=== PATIENT | male | born 1940 | race Caucasian/White ===

== ENCOUNTER 2019-06-10 11:16 | Emergency (ER) | payer MEDICARE, OTHER ==
--- NOTE | 2019-06-10 12:29 | EDM.PDOC ---
ED HPI GENERAL MEDICAL PROBLEM - General Chief Complaint: Headache Stated Complaint: HEADACHE/SENT FROM [facility] Time Seen by Provider: 06/10/19 11:41 Source of Information: Reports: Patient, RN Notes Reviewed History Limitations: Reports: No Limitations - History of Present Illness INITIAL COMMENTS - FREE TEXT/NARRATIVE: Patient is a 78-year-old male who presents to the ED for the evaluation of a right-sided headache. Patient notes that he woke up at around 4 AM today, and had a headache behind his right eye, that extended into the his right occipital region. He would rate this at about a 5 out of 10 at that time, he took 2 aspirin at that time, and then another 2 aspirin at around 9 AM. He states that the headache has subsequently went away. He notes that he has no blurred vision or double vision, no increased confusion from his normal, and his also notes that he is acting normal per himself. The patient did call his clinic doctor, and they cautioned him to come to the ER for possible CT scan, as the patient does have prostate cancer, and they were worried about further abnormalities. He most recently had a bone scan in April 2019, which demonstrated possible degenerative change in multiple joints there were no metastatic looking lesion areas. Patient has no gait disturbance, no unilateral weakness or focal neurological abnormalities identified on initial exam. States that his headache is almost completely gone, and rated his pain at a 2 out of 10 today. Right Head Pain Score (Numeric/FACES): 2 - Related Data Allergies Allergy/AdvReac Type Severity Reaction Status Date / Time No Known Allergies Allergy Verified 10/20/13 07:47 Home Meds: Home Meds Abiraterone Acetate [Zytiga] 250 mg PO 06/10/19 [History] Alfuzosin HCl [Alfuzosin HCl ER] 10 mg PO 06/10/19 [History] Latanoprost 1 drop EYEBOTH 06/10/19 [History] predniSONE [Prednisone] 5 mg PO 06/10/19 [History] Past Medical History HEENT History: Reports: Impaired Vision Genitourinary History: Reports: Other (See Below) (Prostate cancer, Sees Dr. Simeon ) Musculoskeletal History: Reports: Arthritis Neurological History: Reports: Other (See Below) (self stated mental confusion) Oncologic (Cancer) History: Reports: Prostate Dermatologic History: Reports: Benign Melanoma, Eczema Social & Family History - Tobacco Use Smoking Status *Q: Former Smoker Used Tobacco, but Quit: No - Caffeine Use Caffeine Use: Reports: Coffee - Alcohol Use Days Per Week of Alcohol Use: 7 Number of Drinks Per Day: 2 Total Drinks Per Week: 14 Date of Last Drink: 06/09/19 Time of Last Drink: 15:00 - Recreational Drug Use Recreational Drug Use: No ED ROS GENERAL - Review of Systems Review Of Systems: See Below Constitutional: Denies: Fever, Chills HEENT: Denies: Eye Pain, Rhinitis, Throat Pain, Vertigo, Vision Change Cardiovascular: Denies: Chest Pain GI/Abdominal: Denies: Abdominal Pain, Constipation, Diarrhea, Nausea, Vomiting Musculoskeletal: Denies: Neck Pain Neurological: Reports: Confusion (not increased from baseline), Headache. Denies: Pre-Existing Deficit, Syncope, Trouble Speaking, Difficulty Walking, Weakness, Change in Speech, Gait Disturbance - Physical Exam Exam: See Below Exam Limited By: No Limitations General Appearance: Alert, WD/WN, No Apparent Distress Eye Exam: Bilateral Eye: EOMI, Normal Inspection, PERRL Throat/Mouth: Normal Inspection, Normal Lips, Normal Teeth, Normal Gums, Normal Oropharynx, Normal Voice, No Airway Compromise Head Exam: Atraumatic, Normocephalic Neck: Normal Inspection, Supple, Non-Tender, Full Range of Motion Respiratory/Chest: No Respiratory Distress, Lungs Clear, Normal Breath Sounds, No Accessory Muscle Use, Chest Non-Tender Cardiovascular: Normal Peripheral Pulses, Regular Rate, Rhythm, No Murmur GI/Abdominal: Normal Bowel Sounds, Soft, Non-Tender, No Distention, No Mass Neuro Exam (Abbreviated): Alert, Oriented, Normal Cognition, Normal Gait, Normal Reflexes, No Motor/Sensory Deficits Back Exam: Normal Inspection Extremities: Normal Inspection, Normal Range of Motion, Normal Capillary Refill Psychiatric: Normal Affect, Normal Mood Skin Exam: Warm, Dry, Intact, Normal Color, No Rash Course - Vital Signs Last Recorded V/S: Last Vital Signs Temp 96.5 F 06/10/19 11:25 Pulse 69 06/10/19 11:25 Resp 18 06/10/19 11:25 BP 129/72 06/10/19 11:25 Pulse Ox 98 06/10/19 11:25 - Re-Assessments/Exams Free Text/Narrative Re-Assessment/Exam: 06/10/19 12:39 Presents to the ED for the evaluation of a headache. I do not believe the patient requires any sort of head CT or head imaging at this time, and he states that his headache is most gone away since he has been sitting here as well. reassures me that his confusion or change in mentation is not off from baseline. She did not note any sort of unilateral weakness or other neurological deficiencies as well. At this time patient's headache has resolved , and he is not asking for any sort of medications, he was worried more about the possibility of a head CT. No medications will be administered at this time , and there will be no head CT done at today's visit, however I did educate them on signs and symptoms of what to watch out for, and they are understanding of this. Departure - Departure Time of Disposition: 12:27 Disposition: Home, Self-Care 01 Condition: Fair Clinical Impression: Headache Qualifiers: Headache type: unspecified Headache chronicity pattern: acute headache Intractability: not intractable Qualified Code(s): R51 - Headache - Discharge Information *PRESCRIPTION DRUG MONITORING PROGRAM REVIEWED*: No *COPY OF PRESCRIPTION DRUG MONITORING REPORT IN PATIENT STERLING: No Instructions: General Headache Without Cause, [id number] Referrals: Sesar Byrd Jr, MD [Primary Care Provider] - Forms: ED Department Discharge Additional Instructions: You were evaluated in the ED for your headache. You were evaluated, and there was no imaging or medications given for your headache today, as your headache had almost completely resolved itself by the time of evaluation. General recommendations to help prevent headaches, with to try to keep yourself well-hydrated, you may try 400 to 600 mg ibuprofen at onset of headache, along with 25 mg of Benadryl as well at home if you should wish to do so. If you should develop any sign of unilateral weakness, unilateral facial droop, or if you begin to be more confused than you normally are, this would be cause for concern for immediate management in the ER. Please return to the ED if your symptoms should change or worsen. Sepsis Event Note - Evaluation Sepsis Screening Result: No Definite Risk - Focused Exam Vital Signs: Vital Signs Temp Pulse Resp BP Pulse Ox 06/10/19 11:25 96.5 F 69 18 129/72 98 Date Exam was Performed: 06/10/19 Time Exam was Performed: 12:30
== END 2019-06-10 12:40 | disposition home or self-care (01) ==
LOC: JD.ED 11:16
DX: R51 Headache (principal); M19.90 Unspecified osteoarthritis, unspecified site; Z87.891 Personal history of nicotine dependence; Z79.899 Other long term (current) drug therapy
CPT/HCPCS: 99282; 99283

== ENCOUNTER 2021-12-23 07:47 | Day surgery (SDC) | payer MEDICARE, OTHER ==
[~2021-12-23 07:47] MED LIST: Lactated Ringers 1,000 ML IV SCH; Lidocaine 1%/Sod Bicarbonate in NS 8.4% 1 ML Syringe IDERM PRN; Morphine 8 MG, EPINEPHrine 0.3 MG, Cefuroxime 750 MG, Ketorolac 30 MG, Sodium Chloride ... PRN; Sodium Chloride 0.9% 10 ML Syringe FLUSH PRN; Sodium Chloride 0.9% 10 ML Syringe FLUSH SCH
[2021-12-23] MEDS ORDERED: Propofol 200 MG/20 ML SDV ONE ×2 (09:02→10:08)
[2021-12-23] MEDS ORDERED: Lidocaine 1% 4 ML ONE (09:02)
[2021-12-23] MEDS ORDERED: Vancomycin 1 GM SDV ONE (09:20)
[2021-12-23] MEDS ORDERED: Triamcinolone Acetonide 40 MG/ML 1 ML SDV ONE ×2 (09:20→09:21)
[2021-12-23] MEDS ORDERED: Bupivacaine 0.25% 10 ML SDV ONE (09:20)
[2021-12-23] MEDS ORDERED: ceFAZolin 2 GM Vial ONE (09:36)
[2021-12-23] MEDS ORDERED: Lactated Ringers 1,000 ML ONE (09:56)
[2021-12-23] MEDS ORDERED: Ondansetron 4 MG/2 ML SDV IVPUSH PRN (10:00)
[2021-12-23] MEDS ORDERED: fentaNYL 100 MCG/2 ML SDV IVPUSH PRN (10:00)
[2021-12-23] MEDS ORDERED: diphenhydrAMINE 50 MG/ML SDV IVPUSH PRN (10:00)
[2021-12-23] MEDS ORDERED: Ondansetron 4 MG/2 ML SDV ONE (10:46)
[2021-12-23] MEDS ORDERED: Ropivacaine 0.5% 5 MG/ML 30 ML SDV ONE (11:15)
[2021-12-23] MEDS ORDERED: EPINEPHrine 1 MG/ML SDV ONE (11:16)
[2021-12-23] MEDS: Acetaminophen/HYDROcodone 325-5 MG Tab PO PRN ×2 (12:20→12:51)
== END 2021-12-23 16:15 | disposition home or self-care (01) ==
LOC: JD.SDS 07:47
PROVIDERS: ATTEND Orthopaedic Surgery
DX: M17.0 Bilateral primary osteoarthritis of knee (principal); L57.0 Actinic keratosis; Z79.899 Other long term (current) drug therapy; Z88.8 Allergy status to other drugs, medicaments and biological substances; Z98.890 Other specified postprocedural states
CPT/HCPCS: 0055T; 20610; 27447; 73560; 97110; 97116; 97161; A9270; C1713; C1776; J0171; J0690; J0697; J1885; J2270; J2405; J2704; J2795; J3301; J3370; J3490; J7120; 01402; 64447; 76942; 99100

== ENCOUNTER 2022-10-06 07:30 | Day surgery (SDC) | payer MEDICARE, OTHER ==
[~2022-10-06 07:30] MED LIST changes: +Lidocaine 1% 2 ML ONE; +Midazolam 1 MG/ML 2 ML SDV ONE; +Propofol 200 MG/20 ML SDV ONE; +Tranexamic Acid 1,000 MG/10 ML Vial ONE; +Vancomycin 1 GM SDV ONE; +fentaNYL 100 MCG/2 ML SDV ONE
[2022-10-06] MEDS ORDERED: Ropivacaine 0.5% 5 MG/ML 30 ML SDV ONE (07:38)
[2022-10-06] MEDS ORDERED: EPINEPHrine 1 MG/ML SDV ONE (07:38)
[2022-10-06] MEDS ORDERED: ceFAZolin 2 GM Vial ONE (07:41)
[2022-10-06] MEDS ORDERED: ePHEDrine 50 MG/ML SDV ONE (08:30)
[2022-10-06] MEDS ORDERED: Phenylephrine 1% 10 MG/ML SDV ONE (08:30)
[2022-10-06] MEDS ORDERED: fentaNYL 100 MCG/2 ML SDV IVPUSH PRN (10:08)
[2022-10-06] MEDS ORDERED: HYDROmorphone 0.5 MG/0.5 ML Syringe IVPUSH PRN (10:08)
[2022-10-06] MEDS ORDERED: Ondansetron 4 MG/2 ML SDV IVPUSH PRN (10:08)
[2022-10-09] MEDS ORDERED: Morphine 8 MG, EPINEPHrine 0.3 MG, Cefuroxime 750 MG, Ketorolac 30 MG, Sodium Chloride ... PRN ×5 (06:00)
== END 2022-10-06 13:15 | disposition home or self-care (01) ==
LOC: JD.SDS 07:30
PROVIDERS: ATTEND Orthopaedic Surgery
DX: M17.0 Bilateral primary osteoarthritis of knee (principal); I44.7 Left bundle-branch block, unspecified; E78.2 Mixed hyperlipidemia; C61 Malignant neoplasm of prostate; Z79.899 Other long term (current) drug therapy; Z88.8 Allergy status to other drugs, medicaments and biological substances; Z90.89 Acquired absence of other organs
CPT/HCPCS: 01402; 64447; 73560-26-LT; 73560-LT; 97116-GP; 97161-GP; 99100; C1713; C1776; J0171; J0690; J0697; J1885; J2250; J2270; J2370; J2704; J2795; J3010; J3370; J3490; J7120